=== PATIENT | male | born 1950 | race African-American/Black ===

== ENCOUNTER 2022-05-16 16:48 | Observation (INO) ==
[2022-05-16 18:18] LABS: Basophils % 0.5 %; Eosinophils # 0.2 K/mcL (0.0-0.6); Hematocrit 27.9 % (37.5-50.1); Hemoglobin 9.1 g/dL (12.9-16.9); Immature Granulocytes % 0.2 % (0-4); Immature Platelets 20.3 % (1.1-6.1); Lymphocytes # 1.4 K/mcL (0.6-4.6); Lymphocytes % 31.2 %; Mean Corpuscular HGB Conc 32.6 g/dL (31.6-35.5); Mean Corpuscular Hemoglobin 31.8 pg (28.0-33.3); Mean Corpuscular Volume 97.6 fL (83.0-100.0); Mean Platelet Volume 14.4 fL (9.4-12.4); Monocytes # 0.3 K/mcL (0.0-1.3); Monocytes % 5.7 %; Neutrophils # 2.5 K/mcL (1.6-8.9); Red Blood Count 2.86 M/mcL (4.19-5.50); Red Cell Distribution Width 11.9 % (11.5-14.5); Segmented Neutrophils % 57.4 %; White Blood Count 4.4 K/mcL (4.3-11.1)
[2022-05-16 18:36] LABS: Platelet Count 75 K/mcL (140-400)
[2022-05-16 18:41] LABS: BUN/Creatinine Ratio 35 (6-26); Blood Urea Nitrogen 77 mg/dL (8-23); Calcium 9.7 mg/dL (8.6-10.3); Carbon Dioxide 27 mEq/L (23-29); Chloride 102 mEq/L (98-107); Glucose 175 mg/dL (70-105); Osmolality,Calculated 307 (280-300); Potassium 4.6 mEq/L (3.5-5.1); Sodium 135 mEq/L (136-145); Troponin I < 0.03 ng/mL (< 0.04); eGFR For African Americans 36 (> 60); eGFR For Non-African Americans 30 (> 60)
[2022-05-16] MEDS ORDERED: Ringers Solution, Lactated 1,000 ML IVC ONE (20:30)
[2022-05-16] MEDS ORDERED: Naloxone 0.4 MG/ML INJ IVP PRN (22:37)
[2022-05-16] MEDS ORDERED: Acetaminophen 325 MG TABLET PO PRN (22:37)
[2022-05-16] MEDS ORDERED: Ondansetron ODT 4 MG TAB.RAPDIS SL PRN (22:37)
[2022-05-16] MEDS ORDERED: *HR* HYDROcodone/Acet 5/325 mg TABLET PO PRN (22:37)
[2022-05-16] MEDS ORDERED: Melatonin 3 MG TABLET PO PRN (22:37)
[2022-05-16] MEDS ORDERED: Dextrose Gel 15 GM/37.5 ML TUBE PO PRN ×2 (22:42)
[2022-05-16] MEDS ORDERED: *HR* Dextrose 50 % in Water (Syg) 50 ML SYRINGE IVP PRN (22:42)
[2022-05-16] MEDS ORDERED: D5% in Water 1,000 ML IVC PRN (22:42)
[2022-05-16] MEDS ORDERED: Perflutren Lipid Microsphere 1.3 ML in 0.9 % Sodium Chloride 8.7 ML IVP PRN (23:15)
[2022-05-16] MEDS ORDERED: Nitroglycerin 0.4 MG TAB.SUBL SL PRN (23:57)
[2022-05-17 00:49] LABS: Adenovirus Not Detected (Not Detect); Bordetella Pertussis Not Detected (Not Detect); Chlamydophila pneumoniae Not Detected (Not Detect); Coronavirus 229E Not Detected (Not Detect); Coronavirus HKU1 Not Detected (Not Detect); Coronavirus NL63 Not Detected (Not Detect); Coronavirus OC43 Not Detected (Not Detect); Human Metapneumovirus Not Detected (Not Detect); Human Rhinovirus/Enterovirus Not Detected (Not Detect); Influenza A Subtype 2009 H1 Not Detected (Not Detect); Influenza B Not Detected (Not Detect); Mycoplasma pneumoniae Not Detected (Not Detect); Parainfluenza Virus 1 Not Detected (Not Detect); Parainfluenza Virus 2 Not Detected (Not Detect); Parainfluenza Virus 3 Not Detected (Not Detect); Parainfluenza Virus 4 Not Detected (Not Detect); Respiratory Syncytial Virus Not Detected (Not Detect); SARS-CoV-2 Not Detected (Not Detect)
[2022-05-17] MEDS: Insulin LISPRO 300 UNITS/3 ML VIAL SUBQ SCH ×5 (01:28→21:35)
[2022-05-17] MEDS: 0.9 % Sodium Chloride 1,000 ML IVC SCH ×2 (01:28→09:46)
[2022-05-17 05:06] LABS: Hemoglobin 8.5 g/dL (12.9-16.9)
[2022-05-17 05:08] LABS: Basophils % 0.5 %; Eosinophils # 0.2 K/mcL (0.0-0.6); Eosinophils % 3.9 %; Hematocrit 26.5 % (37.5-50.1); Immature Granulocytes % 0.2 % (0-4); Immature Platelets 18.2 % (1.1-6.1); Lymphocytes # 1.8 K/mcL (0.6-4.6); Lymphocytes % 30.3 %; Mean Corpuscular HGB Conc 32.1 g/dL (31.6-35.5); Mean Corpuscular Hemoglobin 31.4 pg (28.0-33.3); Mean Corpuscular Volume 97.8 fL (83.0-100.0); Mean Platelet Volume 14.3 fL (9.4-12.4); Monocytes # 0.3 K/mcL (0.0-1.3); Neutrophils # 3.5 K/mcL (1.6-8.9); Platelet Count 72 K/mcL (140-400); Red Blood Count 2.71 M/mcL (4.19-5.50); Red Cell Distribution Width 12.1 % (11.5-14.5); Segmented Neutrophils % 60.1 %; White Blood Count 5.8 K/mcL (4.3-11.1)
[2022-05-17 05:22] LABS: Calcium 9.5 mg/dL (8.6-10.3); Chol/HDL Ratio 2.4 (0-4.9); Magnesium 2.2 mg/dL (1.6-2.6); Potassium 4.5 mEq/L (3.5-5.1)
[2022-05-17 05:34] LABS: Thyroid Stimulating Hormone 1.963 mcIU/mL (0.340-5.600)
[2022-05-17 09:42] LABS: Parathyroid Hormone Intact 110.3 pg/ml (10.0-65.0)
[2022-05-17 13:05] LABS: Estimated Average Glucose 137 mg/dl; Hemoglobin A1C 6.4 %
[2022-05-17] MEDS: *HR* OxyCODONE Immed Rel 5 MG TABLET PO PRN (14:18)
[2022-05-18] MEDS: Insulin LISPRO 300 UNITS/3 ML VIAL SUBQ SCH ×4 (08:19→21:43)
[2022-05-18] MEDS: *HR* OxyCODONE Immed Rel 5 MG TABLET PO PRN (09:40)
[2022-05-18 10:17] LABS: Basophils % 0.4 %; Eosinophils # 0.2 K/mcL (0.0-0.6); Eosinophils % 4.8 %; Hematocrit 26.6 % (37.5-50.1); Hemoglobin 8.7 g/dL (12.9-16.9); Immature Granulocytes % 0.4 % (0-4); Lymphocytes # 1.2 K/mcL (0.6-4.6); Lymphocytes % 24.6 %; Mean Corpuscular HGB Conc 32.7 g/dL (31.6-35.5); Mean Corpuscular Hemoglobin 31.8 pg (28.0-33.3); Mean Corpuscular Volume 97.1 fL (83.0-100.0); Mean Platelet Volume 13.7 fL (9.4-12.4); Monocytes # 0.2 K/mcL (0.0-1.3); Monocytes % 4.6 %; Red Blood Count 2.74 M/mcL (4.19-5.50); Red Cell Distribution Width 11.9 % (11.5-14.5); Segmented Neutrophils % 65.2 %
[2022-05-18 10:18] LABS: Neutrophils # 3.3 K/mcL (1.6-8.9); Platelet Count 65 K/mcL (140-400)
[2022-05-18 10:33] LABS: Calcium 9.5 mg/dL (8.6-10.3); Potassium 4.3 mEq/L (3.5-5.1)
[2022-05-18] MEDS ORDERED: 0.9 % Sodium Chloride 1,000 ML IVC SCH (11:00)
[2022-05-18] MEDS ORDERED: hydrALAZINE 25 MG TABLET PO PRN (11:49)
[2022-05-18 19:26] LABS: Adenovirus Not Detected (Not Detect); Bordetella Pertussis Not Detected (Not Detect); Chlamydophila pneumoniae Not Detected (Not Detect); Coronavirus 229E Not Detected (Not Detect); Coronavirus HKU1 Not Detected (Not Detect); Coronavirus NL63 Not Detected (Not Detect); Coronavirus OC43 Not Detected (Not Detect); Human Metapneumovirus Not Detected (Not Detect); Human Rhinovirus/Enterovirus Not Detected (Not Detect); Influenza A Subtype 2009 H1 Not Detected (Not Detect); Influenza B Not Detected (Not Detect); Mycoplasma pneumoniae Not Detected (Not Detect); Parainfluenza Virus 1 Not Detected (Not Detect); Parainfluenza Virus 2 Not Detected (Not Detect); Parainfluenza Virus 3 Not Detected (Not Detect); Parainfluenza Virus 4 Not Detected (Not Detect); Respiratory Syncytial Virus Not Detected (Not Detect); SARS-CoV-2 Not Detected (Not Detect)
[2022-05-18] MEDS ORDERED: Zonisamide 100 MG CAPSULE PO SCH (21:00)
[2022-05-18] MEDS: Apixaban 5 MG TABLET PO SCH (21:57)
[2022-05-18] MEDS: Atropine Sulfate 1% 40 DROP/2 ML BOTTLE RIGHT EYE SCH (21:59)
[2022-05-18 23:33] VITALS: O2SAT 98
[2022-05-19 07:41] VITALS: BP 135/68; PULSE 61; TEMP 98.6
[2022-05-19] MEDS: Insulin LISPRO 300 UNITS/3 ML VIAL SUBQ SCH (08:53)
[2022-05-19] MEDS ORDERED: amLODIPine 5 MG TABLET PO SCH (09:00)
[2022-05-19] MEDS ORDERED: Latanoprost 2.5 ML BOTTLE BOTH EYES SCH (09:00)
[2022-05-19] MEDS ORDERED: RisperiDAL 3 MG TABLET PO SCH (09:00)
[2022-05-19] MEDS ORDERED: risperiDONE 1 MG TABLET PO SCH ×2 (09:00)
[2022-05-19] MEDS: Atropine Sulfate 1% 40 DROP/2 ML BOTTLE RIGHT EYE SCH (09:02)
[2022-05-19] MEDS: Apixaban 5 MG TABLET PO SCH (09:03)
== END 2022-05-19 12:40 ==
LOC: 2ANU 16:48 → EMEROOARM 16:48 → SUATTDRO 22:36 → 2ANU 23:27
PROVIDERS: ADMIT Family Medicine; ATTEND Nurse Practitioner